=== PATIENT | female | born 1980 | race Caucasian/White ===

== ENCOUNTER 2022-05-28 19:16 | Inpatient (IN) ==
[2022-05-28] MEDS ORDERED: ALBUT/IPRATROP 3MG/0.5MG NEB 3 ML VIAL INH STA (19:40)
[2022-05-28] MEDS ORDERED: dexAMETHasone**PF** 10 MG/ML VIAL IV ONE (19:40)
--- NOTE | 2022-05-28 19:46 | Emergency Department Note ---
Impression & Plan COVID-19, Shortness of breath, Bilateral wheezing ED Provider Note INFORMANT: Patient ED PROVIDER(S): Sidney Ribeiro MD CHIEF COMPLAINT: Shortness of breath PLAN: Disposition: Admitted Condition: Good Outpatient prescription management: none Referral: None MEDICAL DECISION MAKING: The patient presented because of shortness of breath. She noted that she was told her oxygen saturation was 85% in the clinic. I did review the clinic record from [facility]. There was not a clear documentation of her at 85%. The patient underwent a work-up here. Her chest x-ray shows some congestion without lobar infiltrate. Her CBC showed a slight leukocytosis. The patient's troponin, D-dimer, BNP, chemistry panel, and LFTs were unremarkable. The patient was given a DuoNeb and Decadron. She was still short of breath and wheezing. The patient's O2 saturations were 89%. She was given supplemental oxygen. The patient had a bio fire test performed and was COVID-positive. The patient was given an additional DuoNeb. I discussed further management in the hospital and the patient was in agreement. Consultation was made with, Dr. Ruben Garcia, [facility] hospitalist service. Patient was evaluated in the ER for further management. Triage Nursing notes reviewed and agree them. Vital Signs: reviewed and remarkable for O2 saturation of 89%. Differential diagnosis: Viral syndrome, reactive airway disease, pneumonia, pneumothorax, COPD, CHF, infections, cardiac ischemia, pulmonary embolism, musculoskeletal, gastrointestinal, as well as other pathologies. Diagnostics interpreted by me: ECG: Twelve-lead ECG reveals a normal sinus rhythm at [address] elevation or depression. No PACs or PVCs. Cardiac Monitoring: Cardiac monitoring ordered by me: The patient was placed on continuous cardiac monitoring and observed. It revealed a normal sinus rhythm at 97 beats per minute without ectopy or evidence of dysrhythmia. Imaging studies: Chest x-ray as above. No pneumothorax. HPI: The patient is a 41year old female who presents to the Emergency Room with complaints of flulike symptoms and shortness of breath. This started over the last few days and is progressing. Patient notes a lot of left-sided sinus congestion, pressure and pain. Patient went to [facility] urgent care and was evaluated. She stated that her blood oxygen saturation was 85% and she was wheezing. She had orders placed for a BNP, D-dimer, chemistry panel, x-ray imaging, and pulmonary consultation. She was prescribed prednisone and Augmentin. She was discharged and referred to the emergency department. The patient also notes the following associated symptoms, nausea, diarrhea. Patient notes that her family was sick with flulike symptoms over the last few weeks. Current pain is rated as 8/10. Pt denies LOC, headache, fevers, chills, diaphoresis, visual changes, neck pain, chest pain, vomiting, abdominal pain, back pain, melena, hematochezia, urinary symptoms, numbness, weakness, lymphadenopathy, rash, or other complaints. ROS: See above HPI for pertinent positives & negatives. A total of 10 systems reviewed and were otherwise negative. PAST MEDICAL HISTORY:See Below , reactive airway disease PAST SURGICAL HISTORY:See Below, FAMILY HISTORY:See Below SOCIAL HISTORY:See Below, smoker HOME MEDICATIONS:See Below ALLERGIES:See Below VITALS:See Below PHYSICAL EXAMINATION: GENERAL: Awake, alert, nontoxic-appearing, in no distress HENT: Normocephalic, atraumatic. Oropharynx unremarkable. EYES: Normal conjunctiva. Sclera non-icteric. NECK: Inspection normal. Non-tender. Supple. No nuchal rigidity. FROM. No masses. RESPIRATORY: Scattered bilateral wheezes. No rales. Mildly increased respiratory effort. CARDIAC: Normal rate. Normal rhythm. No murmurs. No rubs. Extremities warm and well perfused. Pulses equal. No JVD. GI: Soft, non-distended. No tenderness to palpation. No rebound or guarding. No masses. RECTAL: Deferred. MUSCULOSKELETAL: Atraumatic. Chest examination reveals no tenderness. The back is symmetrical on inspection without obvious abnormality. There is no CVA tenderness to palpation. No joint edema. LOWER EXTREMITIES: Calves are equal size bilaterally and non-tender. No edema. No discoloration. NEURO: Normal sensorium. No sensory or motor deficits noted. SKIN: No rash or jaundice noted. Sidney Ribeiro MD Past Med/Surg History Surgical History History of cholecystectomy Family History Sister Ovarian cancer Denies family history of Breast cancer Lung cancer Colorectal cancer Social History Smoking Status: Never smoker Hx Alcohol Use: No Hx Substance Use: No Preferred Language: Armenian Communication Ability: Effective marital status: Single Current Living Situation: Family current occupational status: disabled How many Children do You have: 1 Feels Safe at Home: Yes Allergies Allergies Allergy/AdvReac Type Severity Reaction Status Date / Time lamotrigine [From Lamictal] Allergy hives Verified 11/30/21 15:05 Sulfa (Sulfonamide Allergy hives Verified 11/30/21 15:05 Antibiotics) pollen extracts AdvReac Verified 11/30/21 15:05 Home Meds Home Medications Medication Instructions Recorded Confirmed ascorbate calcium (vitamin C) 500 500 mg PO DAILY 11/11/21 11/30/21 mg tablet clonazepam PO 11/11/21 11/30/21 famotidine [Pepcid] PO 11/11/21 11/30/21 ferrous sulfate 325 mg (65 mg 325 mg PO DAILY 11/11/21 11/30/21 iron) tablet (Feosol) gabapentin PO 11/11/21 11/30/21 meloxicam PO 11/11/21 11/30/21 metformin PO 11/11/21 11/30/21 metoprolol succinate PO 11/11/21 11/30/21 omeprazole PO 11/11/21 11/30/21 sertraline [Zoloft] PO 11/11/21 11/30/21 trazodone PO 11/11/21 11/30/21 Previous Rx's Medication Instructions Recorded valacyclovir 500 mg tablet 1,000 mg PO BID 5 days #20 tabs 11/11/21 (Valtrex) Results & Data (ED) Vital Signs Vital Signs - 24 hr 05/28/22 19:23 05/28/22 19:58 05/28/22 21:17 Temperature 37 C Temperature Source Temporal Artery Scan Pulse Rate 99 H 82 Pulse Rate [Finger] 97 H Pulse Rhythm Regular Pulse Strength Normal Respiratory Rate 20 22 Respiratory Effort / Characteristics Non-Labored Spontaneous Respiratory Depth Normal Respiratory Pattern Regular Blood Pressure 123/83 Blood Pressure Mean 96 Blood Pressure Position Sitting Pulse Oximetry 93 96 89 L Oxygen Delivery Method Room Air Room Air Room Air Sepsis Recent Fever Within 48 Hours No Sepsis New/Unexplained Change in Mental Status N/A Sepsis Action Taken by Nursing No Action Required Laboratory Data Result diagrams: 05/28/22 19:54 05/28/22 19:54 Lab Results 05/28/22 05/28/22 05/28/22 Range/Units 19:54 19:54 19:54 WBC 11.49 H (4.8-10.8) K/ul RBC 4.50 (3.93-5.22) M/uL Hgb 13.9 (12.0-16.0) g/dl Hct 41.5 (34.1-44.9) % MCV 92.2 (80.0-100.0) fL MCH 30.9 (25.0-34.0) pg MCHC 33.5 (32.0-36.0) g/dL RDW Std Deviation 42.7 (36.4-46.3) fL RDW Coeff of Maycol 12.6 (11.5-14.5) % Plt Count 290 (130-400) K/uL MPV 9.9 (9.4-12.3) fL Immature Gran % (Auto) 0.3 % Neut % (Auto) 58.1 % Lymph % (Auto) 29.6 % [place] % (Auto) 6.6 % Eos % (Auto) 4.5 % Baso % (Auto) 0.9 % Neut # (Auto) 6.67 H (1.4-6.5) K/uL Lymph # (Auto) 3.40 (1.2-3.4) K/uL [place] # (Auto) 0.76 (0.24-0.82) K/uL Eos # (Auto) 0.52 H (0-0.50) K/uL Baso # (Auto) 0.10 (0-0.2) K/uL Immature Gran # (Auto) 0.04 H (0.00-0.02) K/uL D-Dimer 350 (0-500) ug/L FEU Sodium 138 (136-145) mmol/L Potassium 4.0 (3.5-5.1) mmol/L Chloride 104 (98-107) mmol/L Carbon Dioxide 28 (21-32) mmol/L Anion Gap 6 (3-11) BUN 13 (6-23) mg/dl Creatinine 0.81 (0.6-1.2) mg/dl Est Cr Clr Drug Dosing 103.3 ml/min Est GFR ( Amer) 104.6 ml/min Est GFR (Non-Af Amer) 90.2 ml/min BUN/Creatinine Ratio 16.0 (10-20) Glucose 90 (70-99(Fasting)) mg/dl Calcium 9.1 (8.5-10.1) mg/dl Magnesium 1.7 (1.7-2.4) mg/dl Total Bilirubin 0.4 (0.2-1.0) mg/dl AST 33 (13-39) U/L ALT 38 (7-52) U/L Alkaline Phosphatase 62 (34-104) U/L Troponin I High Sens 2.5 (0-14) pg/ml B-Natriuretic Peptide (0-100) pg/ml Total Protein 7.3 (6.0-8.3) gm/dl Albumin 4.1 (3.4-5.0) gm/dl Globulin 3.2 (2.5-4.0) gm/dl Albumin/Globulin Ratio 1.3 (0.9-2) Adenovirus (PCR) (NotDetected) B. pertussis DNA (PCR) (NotDetected) B.parapertussis DNA PCR (NotDetected) C. pneumoniae DNA (PCR) (NotDetected) Coronavirus OC43 (PCR) (NotDetected) Coronavirus HKU1 (PCR) (NotDetected) Coronavirus 229E (PCR) (NotDetected) SARS-CoV-2 (PCR) (NotDetected) Coronavirus NL63 (PCR) (NotDetected) Human Metapneumovir PCR (NotDetected) Influenza Type A (PCR) (NotDetected) Influenza Type B (PCR) (NotDetected) M. pneumoniae (PCR) (NotDetected) Parainfluenza 1 (PCR) (NotDetected) Parainfluenza 2 (PCR) (NotDetected) Parainfluenza 3 (PCR) (NotDetected) Parainfluenza 4 (PCR) (NotDetected) RSV (PCR) (NotDetected) Entero/Rhino (PCR) (NotDetected) 05/28/22 05/28/22 Range/Units 19:54 19:54 WBC (4.8-10.8) K/ul RBC (3.93-5.22) M/uL Hgb (12.0-16.0) g/dl Hct (34.1-44.9) % MCV (80.0-100.0) fL MCH (25.0-34.0) pg MCHC (32.0-36.0) g/dL RDW Std Deviation (36.4-46.3) fL RDW Coeff of Maycol (11.5-14.5) % Plt Count (130-400) K/uL MPV (9.4-12.3) fL Immature Gran % (Auto) % Neut % (Auto) % Lymph % (Auto) % [place] % (Auto) % Eos % (Auto) % Baso % (Auto) % Neut # (Auto) (1.4-6.5) K/uL Lymph # (Auto) (1.2-3.4) K/uL [place] # (Auto) (0.24-0.82) K/uL Eos # (Auto) (0-0.50) K/uL Baso # (Auto) (0-0.2) K/uL Immature Gran # (Auto) (0.00-0.02) K/uL D-Dimer (0-500) ug/L FEU Sodium (136-145) mmol/L Potassium (3.5-5.1) mmol/L Chloride (98-107) mmol/L Carbon Dioxide (21-32) mmol/L Anion Gap (3-11) BUN (6-23) mg/dl Creatinine (0.6-1.2) mg/dl Est Cr Clr Drug Dosing ml/min Est GFR ( Amer) ml/min Est GFR (Non-Af Amer) ml/min BUN/Creatinine Ratio (10-20) Glucose (70-99(Fasting)) mg/dl Calcium (8.5-10.1) mg/dl Magnesium (1.7-2.4) mg/dl Total Bilirubin (0.2-1.0) mg/dl AST (13-39) U/L ALT (7-52) U/L Alkaline Phosphatase (34-104) U/L Troponin I High Sens (0-14) pg/ml B-Natriuretic Peptide 9 (0-100) pg/ml Total Protein (6.0-8.3) gm/dl Albumin (3.4-5.0) gm/dl Globulin (2.5-4.0) gm/dl Albumin/Globulin Ratio (0.9-2) Adenovirus (PCR) Not Detected (NotDetected) B. pertussis DNA (PCR) Not Detected (NotDetected) B.parapertussis DNA PCR Not Detected (NotDetected) C. pneumoniae DNA (PCR) Not Detected (NotDetected) Coronavirus OC43 (PCR) Not Detected (NotDetected) Coronavirus HKU1 (PCR) Not Detected (NotDetected) Coronavirus 229E (PCR) Not Detected (NotDetected) SARS-CoV-2 (PCR) DETECTED A* (NotDetected) Coronavirus NL63 (PCR) Not Detected (NotDetected) Human Metapneumovir PCR Not Detected (NotDetected) Influenza Type A (PCR) Not Detected (NotDetected) Influenza Type B (PCR) Not Detected (NotDetected) M. pneumoniae (PCR) Not Detected (NotDetected) Parainfluenza 1 (PCR) Not Detected (NotDetected) Parainfluenza 2 (PCR) Not Detected (NotDetected) Parainfluenza 3 (PCR) Not Detected (NotDetected) Parainfluenza 4 (PCR) Not Detected (NotDetected) RSV (PCR) Not Detected (NotDetected) Entero/Rhino (PCR) Not Detected (NotDetected) Administered Medications Discontinued Medications Albuterol (Albut/Ipratrop 3mg/0.5mg Neb 3 Ml Vial) 3 ml INH NOW STA Stop: 05/28/22 19:41 Last Admin: 05/28/22 20:12 Dose: 3 ml Documented By: QGV Dexamethasone Sodium Phosphate (DexamethasonePf 10 Mg/Ml Vial) 10 mg IV NOW ONE Stop: 05/28/22 19:41 Last Admin: 05/28/22 20:12 Dose: 10 mg Documented By: QGV Discharge Plan Visit Data Chief Complaint: Sinus Congestion/Pressure Stated Complaint: SINUS PAIN ED Provider: Sidney Ribeiro Discharge Problem: COVID-19, Shortness of breath, Bilateral wheezing Forms Stand Alone Forms: [facility] Prescriptions Prescriptions: No Action metformin PO omeprazole PO ferrous sulfate [Feosol] 325 mg (65 mg iron) tablet 325 mg PO DAILY ascorbate calcium (vitamin C) 500 mg tablet 500 mg PO DAILY trazodone PO meloxicam PO clonazepam PO sertraline [Zoloft] PO gabapentin PO famotidine [Pepcid] PO metoprolol succinate PO valacyclovir [Valtrex] 500 mg tablet 1,000 mg PO BID 5 Days Qty: 20 1RF Referrals Referrals: Uvaldo Martinez MD [Primary Care Provider] -
[2022-05-28 20:08] LABS: Basophils % (auto) 0.9 %; Eosinophils # (auto) 0.52 K/uL (0-0.50); Eosinophils % (auto) 4.5 %; Hematocrit (blood only) 41.5 % (34.1-44.9); Hemoglobin 13.9 g/dl (12.0-16.0); Immature Granulocytes # (auto) 0.04 K/uL (0.00-0.02); Immature Granulocytes % (auto) 0.3 %; Lymphocytes % (auto) 29.6 %; Mean Corpuscular Hemoglobin 30.9 pg (25.0-34.0); Mean Corpuscular Hgb Conc 33.5 g/dL (32.0-36.0); Mean Corpuscular Volume 92.2 fL (80.0-100.0); Mean Platelet Volume 9.9 fL (9.4-12.3); Monocytes # (auto) 0.76 K/uL (0.24-0.82); Monocytes % (auto) 6.6 %; Neutrophils # (auto) 6.67 K/uL (1.4-6.5); Neutrophils % (auto) 58.1 %; Platelet Count 290 K/uL (130-400); RDW Coefficient of Variation 12.6 % (11.5-14.5); RDW Standard Deviation 42.7 fL (36.4-46.3); White Blood Count 11.49 K/ul (4.8-10.8)
[2022-05-28 20:28] LABS: D Dimer 350 ug/L FEU (0-500)
[2022-05-28 20:33] LABS: Albumin Globulin Ratio 1.3 (0.9-2); Albumin Level 4.1 gm/dl (3.4-5.0); Bilirubin,Total 0.4 mg/dl (0.2-1.0); Calcium 9.1 mg/dl (8.5-10.1); Creatinine Clr Calc Pharmacy 103.3 ml/min; Est GFR (African American) 104.6 ml/min; Est GFR (Non-African American) 90.2 ml/min; Globulin 3.2 gm/dl (2.5-4.0); Magnesium 1.7 mg/dl (1.7-2.4); Total Protein 7.3 gm/dl (6.0-8.3)
[2022-05-28 20:37] LABS: Troponin I High Sensitivity 2.5 pg/ml (0-14)
[2022-05-28 21:00] LABS: Adenovirus PCR Not Detected (NotDetected); Bordetella parapertussis PCR Not Detected (NotDetected); Bordetella pertussis PCR Not Detected (NotDetected); Chlamydia pneumoniae PCR Not Detected (NotDetected); Coronavirus 229E PCR Not Detected (NotDetected); Coronavirus HKU1 PCR Not Detected (NotDetected); Coronavirus NL63 PCR Not Detected (NotDetected); Coronavirus OC43PCR Not Detected (NotDetected); Human Metapneumovirus PCR Not Detected (NotDetected); Influenza A PCR Not Detected (NotDetected); Influenza B PCR Not Detected (NotDetected); Mycoplasma pneumoniae PCR Not Detected (NotDetected); Parainfluenza Virus 1 PCR Not Detected (NotDetected); Parainfluenza Virus 2 PCR Not Detected (NotDetected); Parainfluenza Virus 3 PCR Not Detected (NotDetected); Parainfluenza Virus 4 PCR Not Detected (NotDetected); Respiratory Syncytial VirusPCR Not Detected (NotDetected); Rhinovirus/Enterovirus PCR Not Detected (NotDetected)
[2022-05-28 21:04] LABS: Coronavirus CoV-2 (COVID19)PCR DETECTED (NotDetected)
[2022-05-28] MEDS ORDERED: ALBUT/IPRATROP 3MG/0.5MG NEB 3 ML VIAL NEB STA (21:21)
[2022-05-28] MEDS ORDERED: SODIUM CHLORIDE 0.9% 1000ML 1,000 ML IV ONE (21:39)
[2022-05-28] MEDS ORDERED: traMADol HCL 50 MG TABLET PO STA ×2 (22:12→23:42)
--- NOTE | 2022-05-28 22:13 | History & Physical Report ---
Date of Service May 28, 2022 Assessment & Plan (1) Acute hypoxemic respiratory failure: Plan: Possible asthma exacerbation From protracted COVID-19 illness and sinusitis with superimposed bacterial infection Secondary to severe COVID-19 pneumonia No overt sepsis for now HCV status post treatment DM2 diet-controlled, well-controlled as of recent hemoglobin A1c of 6.8 last February 2022 anxiety/PTSD/mood disorder, at baseline ongoing tobacco abuse Medical telemetry Supplemental O2 Decadron course (Patient beyond treatment window for Remdesivir given symptoms more than 3 weeks duration). MDI RTC Augmentin for sinusitis with superimposed bacterial infection CT paranasal sinuses Re: Protracted sinus congestion/headache symptoms Pulmonary consult if without improvement. Basal bolus insulin, ISS BG goal 1 10-1 40, carb count coverage, update hemoglobin A1c Nicotine patch DVT prophylaxis per Lovenox subcu Full code Text document was generated using [employer] voice recognition software. It may contain grammatical or spelling errors. Kindly contact undersigned for clarification of any documentation item in question. History of Present Illness Chief Complaint: Shortness of breath, possible COVID, sinus congestion Primary Care Provider: Uvaldo Martinez MD History obtained from patient, family, and records. Medical history significant for bronchial asthma, HCV status post treatment, DM2 diet-controlled, anxiety/PTSD/mood disorder, chronic back pain, ongoing tobacco abuse. 3 weeks history of flulike symptoms associated with loss of taste/smell followed by sinus congestion with note of yellow drainage. Worsening cough productive of dry sputum with pleuritic chest pain and shortness of breath. Diarrhea symptoms without abdominal pain complaints. Possible COVID-19 contacts at home. Patient has not received COVID-19 vaccination. Patient thinks her asthma is acting up. Patient seen at urgent care center today. Prednisone and Augmentin course prescribed for asthma exacerbation and sinusitis. Fluticasone salmeterol inhaler prescribed to replace patient's Flovent. Outpatient pulmonary and ENT consultations recommended. Patient sent to [facility] for testing. O2 sats noted to be 80s at the ER. Decadron and neb treatment administered at the ER. 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 Allergies Allergy/AdvReac Type Severity Reaction Status Date / Time lamotrigine [From Lamictal] Allergy hives Verified 05/28/22 22:25 Sulfa (Sulfonamide Allergy hives Verified 05/28/22 22:25 Antibiotics) pollen extracts AdvReac Unknown Verified 05/28/22 22:25 Home Medications Medication Instructions Recorded Confirmed Type Ferrous Sulfate Dried Pill 1 tab PO DAILY 05/28/22 05/28/22 History Vitamin C Gummy 240 mg PO DAILY 05/28/22 05/28/22 History acetaminophen 325 mg tablet 650 mg PO Q6 PRN Pain 05/28/22 05/28/22 History (Tylenol) albuterol sulfate 90 mcg/actuation 2 puff inhalation Q4 PRN .cough, 05/28/22 05/28/22 History aerosol inhaler sob, wheezing amoxicillin 875 mg-potassium 1 tab PO BID 05/28/22 05/28/22 History clavulanate 125 mg tablet azelastine 137 mcg (0.1 %) nasal 1 spray intranasal DIRECTED 05/28/22 History spray aerosol budesonide 0.5 mg/2 mL suspension 0.5 mg irrigation DIRECTED 05/28/22 05/28/22 History for nebulization cetirizine 10 mg tablet (Zyrtec) 10 mg PO DAILY 05/28/22 05/28/22 History clonazepam 0.5 mg tablet 0.5 mg PO DAILY PRN Anxiety 05/28/22 05/28/22 History clonazepam 0.5 mg tablet 1 mg PO HS 05/28/22 05/28/22 History colestipol 1 gram tablet 1 g PO AMHS 05/28/22 05/28/22 History diclofenac sodium 50 mg 50 mg PO BID PRN Pain 05/28/22 05/28/22 History tablet,delayed release dulaglutide 0.75 mg/0.5 mL 0.75 mg subcut WE 05/28/22 05/28/22 History subcutaneous pen injector (Trulicity) famotidine 20 mg tablet 20 mg PO BID PRN Acid Reflux 05/28/22 05/28/22 History fluticasone 250 mcg-salmeterol 50 1 inh inhalation BID 05/28/22 05/28/22 History mcg/dose blistr powdr for inhalation (Advair Diskus) fluticasone propionate 50 2 spray intranasal BID 05/28/22 05/28/22 History mcg/actuation nasal spray,suspension (Flonase Allergy Relief) gabapentin 400 mg capsule 400 mg PO TID 05/28/22 05/28/22 History ketoconazole 2 % shampoo 1 applic topical 2XWK 05/28/22 05/28/22 History methocarbamol 500 mg tablet 750 mg PO HS PRN .. 05/28/22 05/28/22 History metoprolol succinate 50 mg 75 mg PO QAM 05/28/22 05/28/22 History tablet,extended release 24 hr naproxen sodium 220 mg tablet 220 mg PO BIDM PRN Pain 05/28/22 05/28/22 History nicotine 14 mg/24 hr daily 1 patch topical DIRECTED 05/28/22 05/28/22 History transdermal patch omeprazole 40 mg capsule,delayed 40 mg PO BID 05/28/22 05/28/22 History release ondansetron 4 mg disintegrating 4 mg translingual Q8H PRN Nausea 05/28/22 05/28/22 History tablet prednisone 10 mg tablet 10 mg PO .TAPER UD 05/28/22 05/28/22 History rizatriptan 10 mg disintegrating 0 mg PO .COMPLEX 05/28/22 05/28/22 History tablet sertraline 100 mg tablet 150 mg PO QAM 05/28/22 05/28/22 History trazodone 150 mg tablet 150 mg PO HS 05/28/22 05/28/22 History Past Med/Surg History Surgical History History of cholecystectomy Family History Sister Ovarian cancer Denies family history of Breast cancer Lung cancer Colorectal cancer Social History Smoking Status: Current every day smoker Cigarettes Per Day: 4; Second Hand Exposure: Yes; Do You Dip or Chew Tobacco: No; Tobacco Cessation Education Requested by Patient: No Hx Alcohol Use: No Hx Substance Use: No Preferred Language: Greenlandic Communication Ability: Effective Biometry Teacher Required: No Beliefs That Will Affect Care: None marital status: Single Current Living Situation: Parent and Family Current Living Situation Comment: Mom and Son current occupational status: disabled How many Children do You have: 1 Other Information That Helps Us Care for You: No Feels Safe at Home: Yes Safety Concerns: Feels Safe At This Time Assistive Devices: Cane and Scooter/Electric Scooter Review of Systems Review of Systems: As per HPI, all other systems reviewed and negative Physical Exam Physical Exam: GENERAL: Slightly uncomfortable, morbidly obese, looks older than stated age, no respiratory distress SKIN: Normal color, warm HEENT: Bespectacled, [place] palpebral conjunctivae, no ptosis, dry buccal mucosa NECK : Supple, short neck, no tenderness CHEST : Decreased breath sounds, no tenderness HEART : Tachycardic, no obvious murmurs ABDOMEN: Some distention, nontender EXTREMITIES : Minimal LE swelling, no LE tenderness, no other conspicuous deformities noted NEUROLOGIC : Coherent, no facial asymmetry, no other gross focality Results & Data Results & Data ([facility]) Vital Signs (Past 12 Hours) Vital Signs Temp Pulse Pulse Resp BP Pulse Ox O2 Del Method 05/28/22 21:17 97 H 22 89 L Room Air 05/28/22 19:58 82 20 96 Room Air 05/28/22 19:23 37 C 99 H 20 123/83 93 Room Air Laboratory Results Laboratory Results WBC 11.49 K/ul (4.8-10.8) H 05/28/22 19:54 RBC 4.50 M/uL (3.93-5.22) 05/28/22 19:54 Hgb 13.9 g/dl (12.0-16.0) 05/28/22 19:54 Hct 41.5 % (34.1-44.9) 05/28/22 19:54 MCV 92.2 fL (80.0-100.0) 05/28/22 19:54 MCH 30.9 pg (25.0-34.0) 05/28/22 19:54 MCHC 33.5 g/dL (32.0-36.0) 05/28/22 19:54 RDW Std Deviation 42.7 fL (36.4-46.3) 05/28/22 19:54 RDW Coeff of Maycol 12.6 % (11.5-14.5) 05/28/22 19:54 Plt Count 290 K/uL (130-400) 05/28/22 19:54 MPV 9.9 fL (9.4-12.3) 05/28/22 19:54 Immature Gran % (Auto) 0.3 % 05/28/22 19:54 Neut % (Auto) 58.1 % 05/28/22 19:54 Lymph % (Auto) 29.6 % 05/28/22 19:54 [place] % (Auto) 6.6 % 05/28/22 19:54 Eos % (Auto) 4.5 % 05/28/22 19:54 Baso % (Auto) 0.9 % 05/28/22 19:54 Neut # (Auto) 6.67 K/uL (1.4-6.5) H 05/28/22 19:54 Lymph # (Auto) 3.40 K/uL (1.2-3.4) 05/28/22 19:54 [place] # (Auto) 0.76 K/uL (0.24-0.82) 05/28/22 19:54 Eos # (Auto) 0.52 K/uL (0-0.50) H 05/28/22 19:54 Baso # (Auto) 0.10 K/uL (0-0.2) 05/28/22 19:54 Immature Gran # (Auto) 0.04 K/uL (0.00-0.02) H 05/28/22 19:54 D-Dimer 350 ug/L FEU (0-500) 05/28/22 19:54 Sodium 138 mmol/L (136-145) 05/28/22 19:54 Potassium 4.0 mmol/L (3.5-5.1) 05/28/22 19:54 Chloride 104 mmol/L (98-107) 05/28/22 19:54 Carbon Dioxide 28 mmol/L (21-32) 05/28/22 19:54 Anion Gap 6 (3-11) 05/28/22 19:54 BUN 13 mg/dl (6-23) 05/28/22 19:54 Creatinine 0.81 mg/dl (0.6-1.2) 05/28/22 19:54 Est Cr Clr Drug Dosing 103.3 ml/min 05/28/22 19:54 Est GFR ( Amer) 104.6 ml/min 05/28/22 19:54 Est GFR (Non-Af Amer) 90.2 ml/min 05/28/22 19:54 BUN/Creatinine Ratio 16.0 (10-20) 05/28/22 19:54 Glucose 90 mg/dl (70-99(Fasting)) 05/28/22 19:54 Calcium 9.1 mg/dl (8.5-10.1) 05/28/22 19:54 Magnesium 1.7 mg/dl (1.7-2.4) 05/28/22 19:54 Total Bilirubin 0.4 mg/dl (0.2-1.0) 05/28/22 19:54 AST 33 U/L (13-39) 05/28/22 19:54 ALT 38 U/L (7-52) 05/28/22 19:54 Alkaline Phosphatase 62 U/L (34-104) 05/28/22 19:54 Troponin I High Sens 2.5 pg/ml (0-14) 05/28/22 19:54 B-Natriuretic Peptide 9 pg/ml (0-100) 05/28/22 19:54 Total Protein 7.3 gm/dl (6.0-8.3) 05/28/22 19:54 Albumin 4.1 gm/dl (3.4-5.0) 05/28/22 19:54 Globulin 3.2 gm/dl (2.5-4.0) 05/28/22 19:54 Albumin/Globulin Ratio 1.3 (0.9-2) 05/28/22 19:54 Adenovirus (PCR) Not Detected (NotDetected) 05/28/22 19:54 B. pertussis DNA (PCR) Not Detected (NotDetected) 05/28/22 19:54 B.parapertussis DNA PCR Not Detected (NotDetected) 05/28/22 19:54 C. pneumoniae DNA (PCR) Not Detected (NotDetected) 05/28/22 19:54 Coronavirus OC43 (PCR) Not Detected (NotDetected) 05/28/22 19:54 Coronavirus HKU1 (PCR) Not Detected (NotDetected) 05/28/22 19:54 Coronavirus 229E (PCR) Not Detected (NotDetected) 05/28/22 19:54 SARS-CoV-2 (PCR) DETECTED (NotDetected) A* 05/28/22 19:54 Coronavirus NL63 (PCR) Not Detected (NotDetected) 05/28/22 19:54 Human Metapneumovir PCR Not Detected (NotDetected) 05/28/22 19:54 Influenza Type A (PCR) Not Detected (NotDetected) 05/28/22 19:54 Influenza Type B (PCR) Not Detected (NotDetected) 05/28/22 19:54 M. pneumoniae (PCR) Not Detected (NotDetected) 05/28/22 19:54 Parainfluenza 1 (PCR) Not Detected (NotDetected) 05/28/22 19:54 Parainfluenza 2 (PCR) Not Detected (NotDetected) 05/28/22 19:54 Parainfluenza 3 (PCR) Not Detected (NotDetected) 05/28/22 19:54 Parainfluenza 4 (PCR) Not Detected (NotDetected) 05/28/22 19:54 RSV (PCR) Not Detected (NotDetected) 05/28/22 19:54 Entero/Rhino (PCR) Not Detected (NotDetected) 05/28/22 19:54 Diagnostic Findings Chest x-ray as per my interpretation no congestion EKG as per my interpretation : Rate 85, NSR, normal axis, no ischemia
[2022-05-28] MEDS: NICOTINE 7 MG/24 HR TDSY TD SCH (22:55)
[2022-05-28] MEDS: MAGNESIUM SULFATE / D5W 1 GM/100 ML BAG IV SCH (22:55)
[2022-05-28 23:00] LABS: Appearance Urine Clear (Clear); Bilirubin Urine Negative (Negative); Blood Urine Negative (Negative); Color Urine Yellow; Glucose Urine UA Negative (Negative); Ketones Urine Trace (Negative); Leukocyte Esterase Urine Negative (Negative); Nitrite Urine Negative (Negative); Protein Urine Negative (Negative); Specific Gravity Urine 1.019 (1.000-1.030); Urobilinogen Urine Negative (Negative); pH Urine 5.5 (4.5-7.5)
--- NOTE | 2022-05-28 23:00 | XRay Report ---
SINGLE VIEW CHEST CLINICAL HISTORY: Dyspnea. FINDINGS: An AP, portable, upright chest radiograph is obtained. No prior studies are available for c omparison at the time of dictation. The examination is degraded by portable technique and large body habitus. The cardiomediastinal silhouette is normal for projection. There is mild elevation of the ri ght hemidiaphragm. The lungs and pleural spaces are clear. No pneumothorax is seen. The bony thorax i s grossly intact. IMPRESSION: No active disease in the chest. ACT 112: Negative or not required by law. Electronically signed by: Genaro Quiros M.D. 05/28/2022 10:59 PM
[2022-05-28] MEDS ORDERED: OPTIRAY 350 100ml IV ONE (23:43)
[2022-05-28] MEDS ORDERED: oxyCODONE HCL IR 5 MG TAB (IMMEDIATE RELEASE) PO STA (23:56)
--- NOTE | 2022-05-28 23:59 | CT Scan Report ---
CT SCAN OF THE PARANASAL SINUSES WITH IV CONTRAST CLINICAL HISTORY: Sinus infection. COMPARISON STUDY: No priors. TECHNIQUE: High-resolution CT scan of the paranasal sinuses is performed following the IV administra tion of 87 cc of Optiray 350. Images are reviewed in the axial, sagittal, and coronal planes. IV cont rast was administered without complication. A dose lowering technique was utilized adhering to the p rinciples of ALA. CT DOSE: 626.76 mGy.cm FINDINGS: Maxillary antra: Clear bilaterally. Anterior ethmoid sinuses: Clear. Posterior ethmoid sinuses: Trace mucosal thickening is seen in the right. Clinical on the left. Sphenoid sinuses: Trace mucosal thickening is seen on the left. Clear the right. Frontal sinuses: Clear. Ostiomeatal complexes: Patent bilaterally. Frontoethmoidal and sphenoethmoidal recesses: Patent bilaterally. Carotid arteries: The carotid arteries are covered and without septal attachments. Ethmoid roofs: The ethmoid roofs are symmetric. Nasal turbinates: Normal in appearance. Nasal septum: There is mild leftward deviation of the bony nasal septum. Optic nerves: Covered. Orbits: The bony orbits are intact. Orbital contents are normal in appearance. Calvarium: The imaged calvarium is normal in appearance Mastoid air cells: Well pneumatized. Brain parenchyma: Partially visualized brain parenchyma is within normal limits. IMPRESSION: No significant paranasal sinus disease is identified. ACT 112: Negative or not required by law. Electronically signed by: Genaro Quiros M.D. 05/28/2022 11:57 PM
[2022-05-29] MEDS ORDERED: GLUCOSE 10 TAB/TUBE PO PRN (00:18)
[2022-05-29] MEDS ORDERED: ACETAMINOPHEN 325 MG TAB PO PRN (00:18)
[2022-05-29] MEDS ORDERED: PROMETHAZINE HCL 12.5 MG in SODIUM CHLORIDE 0.9% 50 ML IV PRN (00:18)
[2022-05-29] MEDS ORDERED: DEXTROSE 50% 50 ML SYRINGE IV PRN (00:18)
[2022-05-29] MEDS ORDERED: CARBOHYDRATES FOR HYPOGLYCEMIA PO PRN (00:18)
[2022-05-29] MEDS ORDERED: NAPROXEN 250 MG TAB PO PRN (00:18)
[2022-05-29] MEDS ORDERED: GLUCAGON FOR INJ 1 MG VIAL SQ PRN (00:18)
[2022-05-29] MEDS ORDERED: GLUCOSE 40% GEL 15 GM TUBE PO PRN (00:18)
[2022-05-29] MEDS: MAGNESIUM SULFATE / D5W 1 GM/100 ML BAG IV SCH (01:03)
[2022-05-29] MEDS: INSULIN ASPART PER UNIT SC SCH ×5 (01:05→21:04)
[2022-05-29] MEDS: traZODone HCL 50 MG TAB PO SCH ×2 (01:24→21:11)
[2022-05-29] MEDS: GABAPENTIN 400 MG CAP PO SCH ×4 (01:24→21:09)
[2022-05-29] MEDS: clonazePAM 0.5 MG TAB PO PRN ×2 (01:26→15:58)
[2022-05-29] MEDS: oxyCODONE HCL IR 5 MG TAB (IMMEDIATE RELEASE) PO PRN ×3 (01:26→23:22)
[2022-05-29] MEDS: AZELASTINE HCL 0.1% NASAL 200 SPRAYS/27,400 MCG BTL SCH ×3 (01:28→21:11)
[2022-05-29] MEDS: clonazePAM 1 MG TAB PO SCH ×2 (01:32→21:09)
[2022-05-29] MEDS ORDERED: LANTUS PER UNIT CHARGE SQ SCH ×2 (02:35→21:00)
[2022-05-29] MEDS ORDERED: FLUARIX QUADRIVALENT 0.5 ML SYR IM ONE (04:32)
[2022-05-29] MEDS ORDERED: SODIUM CHLORIDE 0.65% NA SOLN 45 ML (OCEAN) PRN (05:47)
[2022-05-29 06:08] LABS: Basophils # (auto) 0.04 K/uL (0-0.2); Basophils % (auto) 0.4 %; Eosinophils # (auto) 0.01 K/uL (0-0.50); Eosinophils % (auto) 0.1 %; Hematocrit (blood only) 42.3 % (34.1-44.9); Hemoglobin 14.1 g/dl (12.0-16.0); Immature Granulocytes # (auto) 0.08 K/uL (0.00-0.02); Immature Granulocytes % (auto) 0.8 %; Lymphocytes # (auto) 1.04 K/uL (1.2-3.4); Lymphocytes % (auto) 10.9 %; Mean Corpuscular Hemoglobin 30.5 pg (25.0-34.0); Mean Corpuscular Hgb Conc 33.3 g/dL (32.0-36.0); Mean Corpuscular Volume 91.6 fL (80.0-100.0); Mean Platelet Volume 10.2 fL (9.4-12.3); Neutrophils % (auto) 86.8 %; Platelet Count 235 K/uL (130-400); RDW Coefficient of Variation 12.5 % (11.5-14.5); RDW Standard Deviation 41.9 fL (36.4-46.3); Red Blood Count 4.62 M/uL (3.93-5.22); White Blood Count 9.57 K/ul (4.8-10.8)
[2022-05-29 06:23] LABS: Calcium 9.3 mg/dl (8.5-10.1); Est GFR (African American) 114.8 ml/min; Potassium 4.6 mmol/L (3.5-5.1)
[2022-05-29] MEDS ORDERED: LEVALBUTEROL TARTRATE 15 GM HFA.AER.AD INH SCH (07:00)
[2022-05-29] MEDS ORDERED: PHARMACY GLYCEMIC MGMT CONSULT PRN (07:49)
[2022-05-29] MEDS ORDERED: XOPENEX/ATROVENT 1.25mg/0.5MG NEB COMBO NEB SCH (07:50)
--- NOTE | 2022-05-29 08:03 | Pulmonary Consultation ---
Date of Consultation May 29, 2022 Assessment & Plan (1) Acute hypoxemic respiratory failure: (2) Shortness of breath: (3) Morbid obesity: (4) Acute asthma exacerbation: (5) Current smoker: Plan CT chest 05/29/2022 personally reviewed: Minimal tree-in-bud opacities appreciated in the right upper lobe anteriorly Left lower lobe nodularity versus mucous plugging Insignificant mediastinal lymphadenopathy --Acute hypoxic respiratory failure CT chest does not show any significant infiltrate VQ mismatch form morbid obesity might be playing a role in patient's hypoxia Asthma exacerbation COVID-19 PCR positive 05/28/2022 Respiratory bio fire negative for everything else BNP 9 Procalcitonin 0.08, CRP 0.89 Continue with O2 supplementation to keep oxygen saturation between 90-92%. Continue with incentive spirometry Continue with flutter valve. Recommend patient to be kept euvolemic to negative balance -- Asthma On Advair 250-50 at home Patient just got a kitten as well which I think she is most likely allergic to Recommend outpatient RAST panel as well as IgE Add Spiriva to the regimen on discharge -- Allergic rhinitis or postnasal drip On azelastine nasal spray --Morbid obesity with probable MAXIMUS/OHS Would recommend BiPAP nightly and as needed shortness of breath Outpatient polysomnography -- Current smoker Importance of quitting explained to the patient in depth Plan: CT chest does not show any significant infiltrate relating to COVID-19 diagnosis. I do not think Covid-19 pneumonia is playing a role in her hypoxia She does have some mucous plugging. Continue with Mucinex and flutter valve Incentive spirometry. Patient has very poor effort. I personally showed her how to use the incentive spirometry. Add montelukast Patient does not have any signs of sinusitis on the CT of the sinuses. Could continue with Augmentin for 7 days or change to doxycycline for 5 days Follow-up sputum culture Please note the above document was generated using voice recognition software. It may contain grammatical, syntax or spelling errors.Any formal questions or c oncerns about the content, text or information contained within the body of this dictation should be directly addressed to the provider for clarification. History of Present Illness Attending Physician: Toney Erazo MD History of Present Illness 41-year-old female presented to the hospital with complaints of shortness of breath along with nasal congestion Past medical history: Bronchial asthma, hepatitis C status posttreatment, diabetes type 2, anxiety/depression, chronic back pain Patient is not vaccinated against COVID-19 Patient did have diarrhea at home without hematochezia. Patient saturation in the ED was in the mid 80s. At the time of examination patient was saturating 93-94% on room air, she was not in any acute distress Denies any chest pain, no headache, no nausea, no vomiting Does complain of mild chest congestion. Able to bring up phlegm without any hemoptysis. She has been having multiple bouts of diarrhea approximately since 2 weeks prior to coming to the hospital. Since coming to the hospital no bowel movement No dysuria, no headache, no blurry vision Denies any fever or chills right now For her asthma she uses Advair on a regular basis. She still has to use albuterol inhaler up to 3-4 times on a daily basis. Social history: Active smoker, smokes 5-10 cigarettes on a daily basis. 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 Just got a kitten which most likely she is allergic to Allergies Allergy/AdvReac Type Severity Reaction Status Date / Time lamotrigine [From Lamictal] Allergy hives Verified 05/28/22 22:25 Sulfa (Sulfonamide Allergy hives Verified 05/28/22 22:25 Antibiotics) pollen extracts AdvReac Unknown Verified 05/28/22 22:25 Home Medications Medication Instructions Recorded Confirmed Type Ferrous Sulfate Dried Pill 1 tab PO DAILY 05/28/22 05/28/22 History Vitamin C Gummy 240 mg PO DAILY 05/28/22 05/28/22 History acetaminophen 325 mg tablet 650 mg PO Q6 PRN Pain 05/28/22 05/28/22 History (Tylenol) albuterol sulfate 90 mcg/actuation 2 puff inhalation Q4 PRN .cough, 05/28/22 05/28/22 History aerosol inhaler sob, wheezing amoxicillin 875 mg-potassium 1 tab PO BID 05/28/22 05/28/22 History clavulanate 125 mg tablet azelastine 137 mcg (0.1 %) nasal 1 spray intranasal DIRECTED 05/28/22 05/28/22 History spray aerosol budesonide 0.5 mg/2 mL suspension 0.5 mg irrigation DIRECTED 05/28/22 05/28/22 History for nebulization cetirizine 10 mg tablet (Zyrtec) 10 mg PO DAILY 05/28/22 05/28/22 History clonazepam 0.5 mg tablet 0.5 mg PO DAILY PRN Anxiety 05/28/22 05/28/22 History clonazepam 0.5 mg tablet 1 mg PO HS 05/28/22 05/28/22 History colestipol 1 gram tablet 1 g PO AMHS 05/28/22 05/28/22 History diclofenac sodium 50 mg 50 mg PO BID PRN Pain 05/28/22 05/28/22 History tablet,delayed release dulaglutide 0.75 mg/0.5 mL 0.75 mg subcut WE 05/28/22 05/28/22 [facility] famotidine 20 mg tablet 20 mg PO BID PRN Acid Reflux 05/28/22 05/28/22 History fluticasone 250 mcg-salmeterol 50 1 inh inhalation BID 05/28/22 05/28/22 History mcg/dose blistr powdr for inhalation (Advair Diskus) fluticasone propionate 50 2 spray intranasal BID 05/28/22 05/28/22 History mcg/actuation nasal spray,suspension (Flonase Allergy Relief) gabapentin 400 mg capsule 400 mg PO TID 05/28/22 05/28/22 History ketoconazole 2 % shampoo 1 applic topical 2XWK 05/28/22 05/28/22 History methocarbamol 500 mg tablet 750 mg PO HS PRN .. 05/28/22 05/28/22 History metoprolol succinate 50 mg 75 mg PO QAM 05/28/22 05/28/22 History tablet,extended release 24 hr naproxen sodium 220 mg tablet 220 mg PO BIDM PRN Pain 05/28/22 05/28/22 History nicotine 14 mg/24 hr daily 1 patch topical DIRECTED 05/28/22 05/28/22 History transdermal patch omeprazole 40 mg capsule,delayed 40 mg PO BID 05/28/22 05/28/22 History release ondansetron 4 mg disintegrating 4 mg translingual Q8H PRN Nausea 05/28/22 05/28/22 History tablet prednisone 10 mg tablet 10 mg PO .TAPER UD 05/28/22 05/28/22 History rizatriptan 10 mg disintegrating 0 mg PO .COMPLEX 05/28/22 05/28/22 History tablet sertraline 100 mg tablet 150 mg PO QAM 05/28/22 05/28/22 History trazodone 150 mg tablet 150 mg PO HS 05/28/22 05/28/22 History Patient History Surgical History History of cholecystectomy Family History Sister Ovarian cancer Denies family history of Breast cancer Lung cancer Colorectal cancer Social History Smoking Status: Current every day smoker Cigarettes Per Day: 4; Second Hand Exposure: Yes; Do You Dip or Chew Tobacco: No; Tobacco Cessation Education Requested by Patient: No Hx Alcohol Use: No Hx Substance Use: No Preferred Language: Yemeni Communication Ability: Effective Supervisor Grips Required: No Beliefs That Will Affect Care: None marital status: Single Current Living Situation: Parent and Family Current Living Situation Comment: Mom and Son current occupational status: disabled How many Children do You have: 1 Other Information That Helps Us Care for You: No Feels Safe at Home: Yes Safety Concerns: Feels Safe At This Time Assistive Devices: Cane and Scooter/Electric Scooter Review of Systems Review of Systems: All systems reviewed & are unremarkable except as noted in HPI & below Physical Exam Physical Exam: Constitutional: No acute distress HEENT: EOMI, PERRLA Respiratory system: Decreased air entry bilaterally, no wheeze, rhonchi, mild crackles bilateral lower lobes CVS: S1-S2 positive, no murmurs or gallops Abdomen: Soft, nontender, nondistended, positive bowel sounds x4, obese Extremities: +2 pulses bilaterally radialis/ dorsalis pedis, no cyanosis, no edema Neuro: Awake alert oriented x3 Psych: Normal mood and affect G/U: No Perry Skin: no rashes, warm and dry Lymphatic: no cervical or axillary lymphadenopathy Results & Data Results & Data ([facility]) Vital Signs (Past 12 Hours) Vital Signs Temp Pulse Pulse Resp BP Pulse Ox O2 Del Method 05/29/22 07:36 109 H 16 93 Room Air 05/29/22 01:00 37.3 C 104 H 18 134/85 94 Room Air 05/29/22 03:46 37.0 C 102 H 18 116/70 94 Room Air 05/29/22 01:57 95 H 05/29/22 01:00 37.3 C 104 H 18 133/85 94 Room Air 05/29/22 00:32 Room Air 05/29/22 00:07 101 H 20 92 Room Air 05/28/22 22:00 105 H 20 102/81 94 Room Air 05/28/22 21:17 97 H 22 89 L Room Air 05/28/22 19:58 82 20 96 Room Air Laboratory Results 05/29/22 05:48 05/29/22 05:48 PG Care Time/CCT Total # of Minutes Spent Total Time Spent with Patient: Total time spent is greater than 50% in coordination of care (as documented) at patient's floor/unit and/or counseling patient: [place] [address] Initial Inpt Care Lvl 3 Patient Type New Diagnoses Acute hypoxemic respiratory failure J96.01 Shortness of breath R06.02 Morbid obesity E66.01 Acute asthma exacerbation J45.901 Current smoker F17.200
[2022-05-29] MEDS: IPRATROPIUM BROMIDE NEB SOLN 0.02% 2.5 ML VIAL INH SCH ×3 (08:22→19:17)
[2022-05-29] MEDS: LEVALBUTEROL 1.25MG/0.5ML NEB INH SCH ×3 (08:22→19:17)
[2022-05-29] MEDS: AMOXICILLIN/CLAVULANATE 875 MG TAB PO SCH ×2 (08:30→16:43)
[2022-05-29] MEDS: ENOXAPARIN INJ 40 MG/0.4 ML SYR SQ SCH (08:32)
[2022-05-29] MEDS: FLUTICASONE PROPIONATE NA SPR 16 GM BTL SCH ×2 (08:32→21:11)
[2022-05-29] MEDS: dexAMETHasone 6 MG in SYRINGE 0 ML IV SCH (08:32)
[2022-05-29] MEDS: PANTOprazole 40 MG TAB PO SCH ×2 (08:33→21:09)
[2022-05-29] MEDS: SERTRALINE HCL 50 MG TABLET PO SCH (08:33)
[2022-05-29] MEDS: FAMOTIDINE 20 MG TAB PO PRN (08:34)
[2022-05-29] MEDS: CETIRIZINE HCL 10 MG TABLET PO SCH (08:34)
[2022-05-29] MEDS: METOPROLOL SUCC 25MG EXT REL TAB PO SCH (08:34)
[2022-05-29] MEDS: FERROUS SULFATE 325 MG TAB PO SCH (08:34)
[2022-05-29] MEDS: FLUTICASONE/VILANTEROL 200/25MCG 14 PUFFS/INHALER INH SCH (08:36)
[2022-05-29] MEDS: LANTUS PER UNIT CHARGE SQ SCH (08:49)
[2022-05-29] MEDS ORDERED: FERROUS SULFATE 325 MG TAB PO SCH (09:00)
[2022-05-29] MEDS ORDERED: FLUTICASONE/SALMETEROL 250/50 (ADVAIR) 14 PUFF/1 INHALER INH SCH (09:00)
[2022-05-29] MEDS: guaiFENesin 600 MG TABCR PO SCH ×2 (09:16→21:10)
[2022-05-29 09:39] LABS: Pregnancy Test, Urine Negative (Negative)
--- NOTE | 2022-05-29 09:40 | CT Scan Report ---
CT chest diagnostic wo con CT DOSE: 1005.40 mGy.cm HISTORY: Dyspnea. r/o pneumonia TECHNIQUE: Multiaxial CT images of the chest were performed without contrast. A dose lowering techni que was utilized adhering to the principles of ALARA. COMPARISON: Chest 05/28/2022. FINDINGS: The central airways are patent. No pneumothorax. No focal lung consolidations. There is a s mall focus of tree-in-bud nodular opacities within the right upper lobe on image 58. A few small nodu lar foci within the left lower lobe posteriorly favor impacted distal bronchi. Otherwise, the central airways are patent. There is a 1.4 cm left thyroid nodule again noted. Hepatic steatosis. Cholecyste ctomy. The adrenal glands are unremarkable. A 2.8 cm hypodense lesion within the left kidney. This fa vors a cyst. There is a punctate stone within the left kidney. No mediastinal or hilar lymphadenopath y. The heart is normal in size. Normal esophagus. Normal caliber thoracic aorta with mild calcified p laque. No pleural or pericardial effusions. IMPRESSION: 1. A small focus of tree-in-bud nodular opacities within the right upper lobe. A few small nodular fo ci within the left lower lobe posteriorly which favor impacted distal bronchi. Therefore, these findi ngs suggest a mild bronchiolitis. 2. No focal lung consolidations. 3. Hepatic steatosis. ACT 112: Negative or not required by law. Electronically signed by: Erwin Blanco M.D. 05/29/2022 9:38 AM
--- NOTE | 2022-05-29 11:18 | Electrocardiogram Report ---
Test Reason : Blood Pressure : / mmHG Vent. Rate : 085 BPM Atrial Rate : 085 BPM P-R Int : 158 ms QRS Dur : 088 ms QT Int : 380 ms P-R-T Axes : 040 048 035 degrees QTc Int : 452 ms Normal sinus rhythm Normal ECG No previous ECGs available Confirmed by Solo Durand ([id number]) on 05/29/2022 11:17:57 AM Referred By: REFERRED SELF Confirmed By:Solo Durand
[2022-05-29] MEDS ORDERED: RIZATRIPTAN BENZOATE 10 MG TAB PO STA (14:01)
[2022-05-29] MEDS: ACETAMINOPHEN 500 MG TAB PO SCH ×2 (14:46→21:10)
--- NOTE | 2022-05-29 14:53 | Hospitalist Progress Note ---
Date of Service May 29, 2022 Assessment & Plan (1) Acute hypoxemic respiratory failure: Plan: Possible asthma exacerbation COVID [address] - [address] chest: 1. A small focus of tree-in-bud nodular opacities within the right upper lobe. A few small nodular foci within the left lower lobe posteriorly which favor impacted distal bronchi. Therefore, these findings suggest a mild bronchiolitis. 2. No focal lung consolidations. 3. Hepatic steatosis. - improving - now on room air - continue Decadron - Nebs Augmentin BID Mucinex, Flutter valve - out of window for Remdesivir Cutter Head Sharpener consulted - will need outpatient Sleep Study Migraine/Cluster Headache - Rizatriptan PO one dose - PRN Toradol HCV status post treatment DM2 diet-controlled, well-controlled as of recent hemoglobin A1c of 6.8 last February 2022 anxiety/PTSD/mood disorder, at baseline ongoing tobacco abuse DVT prophylaxis per Lovenox subcu Full code Disposition d/c home when medically stable Admission and Anticipated Discharge Date Admission Date: May 28, 2022 Subjective ff up for resp failure, covid infection, etc seen resting in bed, comfortable watching TV on room air states she feels improved compared to yesterday but still has some chest tightness, productive cough no dyspnea reports L sided headache- similar to her usual migraine no other symptoms Review of Systems Review of Systems: all noted and negative except for above Physical Exam Physical Exam: General- oriented x 3, not in distress, speaks in sentences with no effort or accessory muscle use Eyes- anicteric Neck- no JVD Lungs- mild rhonchi at the bases no wheezing Heart- normal rate, regular rhythm; no murmurs Abdomen- normal bowel sounds, nondistended, soft, no tenderness Extremities- no pretibial edema, no calf tenderness Neuro- alert, oriented x 3; no gross focal neurologic deficits Skin- warm & dry Results & Data Results & Data ([facility]) Vital Signs (Past 12 Hours) Vital Signs Temp Pulse Resp BP Pulse Ox O2 Del Method 05/29/22 12:38 88 18 95 Room Air 05/29/22 11:43 37 C 91 H 18 129/86 92 Room Air 05/29/22 08:00 Room Air 05/29/22 08:00 37.1 C 109 H 20 138/93 96 Room Air 05/29/22 07:36 109 H 16 93 Room Air 05/29/22 03:46 37.0 C 102 H 18 116/70 94 Room Air all noted and reviewed including below
--- NOTE | 2022-05-29 15:02 | Pharmacy Report ---
Pharmacy Glycemic Short Note 2 - Date of Service May 29, 2022 - Glycemic Short BSG Results (Last 24 hours): 05/28/22 05/29/22 05/29/22 19:54 00:49 05:48 Glucose 90 200 H POC Glucose 209 H 05/29/22 05/29/22 07:59 11:42 Glucose POC Glucose 160 H 165 H OUTPATIENT ANTIDIABETIC REGIMEN: * Metformin ER 500 mg PO QAM * Trulicity 0.75 mg weekly ASSESSMENT: * 41 y/o F admitted with covid and respiratory failure. Patient has history of Type 2 diabetes managed at home on above two meds. * She was started on Dexamethasone 10 mg IV x1 yesterday which caused hyperglycemia late in the day. * Dex IV 6 mg daily continued this morning. Lantus 5 units was given overnight. Additionally Lantus 0.15 units/kg QAM ordered this morning. * Novolog parameters based on wt and stress of 3. PLAN FOR INPATIENT GLYCEMIC CONTROL: * Hold outpatient oral diabetes medications * Basal insulin * Lantus 15 units SQ QAM * Bolus insulin * NovoLog per scale ACHS or Q6hrs while NPO * Goal Range: Low 110 mg/dL - High 140 mg/dL * Correction Factor: 15 mg/dL/unit * Nutritional / Prandial insulin per carb ratio of 1 unit per 5 grams CHO consumed
[2022-05-29] MEDS: KETOROLAC 30 MG/ML VIAL IV PRN ×2 (15:57→22:29)
[2022-05-29] MEDS ORDERED: MONTELUKAST SODIUM 10 MG TABLET PO SCH (21:00)
[2022-05-30] MEDS: IPRATROPIUM BROMIDE NEB SOLN 0.02% 2.5 ML VIAL INH SCH ×3 (00:19→12:42)
[2022-05-30] MEDS: LEVALBUTEROL 1.25MG/0.5ML NEB INH SCH ×3 (00:19→12:42)
[2022-05-30] MEDS: ACETAMINOPHEN 500 MG TAB PO SCH ×2 (06:35→13:00)
[2022-05-30 06:46] LABS: Estimated Average Glucose 131 mg/dl; Hemoglobin A1C 6.2 % (4.5-5.6)
[2022-05-30] MEDS: SERTRALINE HCL 50 MG TABLET PO SCH (08:20)
[2022-05-30] MEDS: FERROUS SULFATE 325 MG TAB PO SCH (08:20)
[2022-05-30] MEDS: PANTOprazole 40 MG TAB PO SCH (08:20)
[2022-05-30] MEDS: CETIRIZINE HCL 10 MG TABLET PO SCH (08:20)
[2022-05-30] MEDS: guaiFENesin 600 MG TABCR PO SCH (08:20)
[2022-05-30] MEDS: GABAPENTIN 400 MG CAP PO SCH ×2 (08:20→13:00)
[2022-05-30] MEDS: FAMOTIDINE 20 MG TAB PO PRN (08:20)
[2022-05-30] MEDS: METOPROLOL SUCC 25MG EXT REL TAB PO SCH (08:20)
[2022-05-30] MEDS: NICOTINE 7 MG/24 HR TDSY TD SCH (08:20)
[2022-05-30] MEDS: oxyCODONE HCL IR 5 MG TAB (IMMEDIATE RELEASE) PO PRN ×2 (08:20→12:59)
[2022-05-30] MEDS: AMOXICILLIN/CLAVULANATE 875 MG TAB PO SCH ×2 (08:20→17:24)
[2022-05-30] MEDS: clonazePAM 0.5 MG TAB PO PRN (08:21)
[2022-05-30] MEDS: FLUTICASONE PROPIONATE NA SPR 16 GM BTL SCH (08:21)
[2022-05-30] MEDS: FLUTICASONE/VILANTEROL 200/25MCG 14 PUFFS/INHALER INH SCH (08:21)
[2022-05-30] MEDS: AZELASTINE HCL 0.1% NASAL 200 SPRAYS/27,400 MCG BTL SCH (08:21)
[2022-05-30] MEDS: dexAMETHasone 6 MG in SYRINGE 0 ML IV SCH (08:22)
[2022-05-30] MEDS: ENOXAPARIN INJ 40 MG/0.4 ML SYR SQ SCH (08:22)
[2022-05-30] MEDS: INSULIN ASPART PER UNIT SC SCH ×3 (08:50→17:23)
[2022-05-30] MEDS: LANTUS PER UNIT CHARGE SQ SCH (08:51)
--- NOTE | 2022-05-30 15:50 | Pulmonology Progress Note ---
Date of Service May 30, 2022 Assessment & Plan (1) Acute asthma exacerbation: Plan: Patient has evidence of focal bronchiolitis in the right upper lobe on CT chest possibly related to COVID-19. She is being treated for an asthma exacerbation. I would not recommend more than 5 days of steroids and discharging her home on an ICS/LABA inhaler. Mild peripheral eosinophilia noted on CBC during admission to [facility] [place] [facility] [place] consistent with Th2 mediated asthma. Continue IS and flutter valve. She has an appointment established with [facility] pulmonology which I recommended she follow-up with. I would recommend avoiding known and potential allergens. Outpatient PFTs, IgE and NIOX testing should be considered as an outpatient. She is stable for discharge home today. Pulmonary to sign off. Thank you for the consult. Admission and Anticipated Discharge Date Admission Date: May 28, 2022 Subjective Patient denies any shortness of breath at this time. Cough is minimal. She notes that she has been sleeping well today. She is currently on room air. Review of Systems Review of Systems: All systems reviewed & are unremarkable except as noted in HPI & below Physical Exam Physical Exam: Constitutional: No acute distress HEENT: EOMI, PERRLA Respiratory system: No wheeze, rhonchi, or crackles CVS: S1-S2 positive, no murmurs or gallops Abdomen: Soft, nontender, nondistended, obese Extremities: +2 pulses bilaterally radialis/ dorsalis pedis, no cyanosis, no edema Neuro: Awake alert oriented x3 Psych: Normal mood and affect G/U: No Perry Skin: no rashes, warm and dry Lymphatic: no cervical or axillary lymphadenopathy Results & Data Results & Data ([facility]) Vital Signs (Past 12 Hours) Vital Signs Temp Pulse Pulse Resp BP Pulse Ox O2 Del Method 05/30/22 12:42 72 16 95 Room Air 05/30/22 11:55 37 C 72 18 133/81 94 Room Air 05/30/22 08:00 73 05/30/22 08:00 Room Air 05/30/22 07:50 37 C 90 18 106/60 93 Room Air 05/30/22 07:09 77 16 96 Room Air PG Care Time/CCT Total # of Minutes Spent Total Time Spent with Patient: Total time spent is greater than 50% in coordination of care (as documented) at patient's floor/unit and/or counseling patient: Coding Level of Care Code 49550 Subseq Hosp Care Lvl 2 Diagnoses Acute asthma exacerbation J45.901
--- NOTE | 2022-05-30 17:40 | Hospitalist Progress Note ---
Date of Service May 30, 2022 delayed entry date of service as above Assessment & Plan (1) Acute hypoxemic respiratory failure: Plan: Asthma exacerbation COVID [address] chest: 1. A small focus of tree-in-bud nodular opacities within the right upper lobe. A few small nodular foci within the left lower lobe posteriorly which favor impacted distal bronchi. Therefore, these findings suggest a mild bronchiolitis. 2. No focal lung consolidations. 3. Hepatic steatosis. - out of window for Remdesivir - clinically improved weaned off oxygen - placed on Decadron--> transition to Prednisone - Nebs also given Augmentin BID Mucinex Flutter valve Wooden Barrel Mechanic consulted will need outpatient Sleep Study Migraine/Cluster Headache - Rizatriptan PO one dose given resolved - PRN Toradol HCV status post treatment DM2 diet-controlled, well-controlled as of recent hemoglobin A1c of 6.8 last February 2022 Anxiety/PTSD/mood disorder Ongoing tobacco abuse DVT prophylaxis per Lovenox subcu Full code Disposition d/c home when medically stable Plan d/c home plan of care discussed with patient in detail and at length all questions answered she is understanding, agreeable, comfortable with the plan of care Admission and Anticipated Discharge Date Admission Date: May 28, 2022 Subjective ff up for COVID infection, Asthma exacerbation, etc seen resting in bed, comfortable on room air states she feels much better overall minimal intermittent cough no dyspnea, fever/chills appetite is good headache resolved no other symptoms states she is ready for discharge Review of Systems Review of Systems: all noted and negative except for above Physical Exam Physical Exam: General- oriented x 3, not in distress, speaks in sentences with no effort or accessory muscle use Eyes- anicteric Neck- no JVD Lungs- clear breath sounds bilaterally, no rales/wheezes Heart- normal rate, regular rhythm; no murmurs Abdomen- normal bowel sounds, nondistended, soft, nontender Extremities- no pretibial edema, no calf tenderness Neuro- alert, oriented x 3; no gross focal neurologic deficits Skin- warm & dry Results & Data Results & Data ([facility]) Vital Signs (Past 12 Hours) Vital Signs Temp Pulse Pulse Resp BP Pulse Ox O2 Del Method 05/30/22 17:39 37.2 C 72 18 128/76 94 05/30/22 16:58 37.2 C 72 18 128/76 94 Room Air 05/30/22 12:42 72 16 95 Room Air 05/30/22 11:55 37 C 72 18 133/81 94 Room Air 05/30/22 08:00 73 05/30/22 08:00 Room Air 05/30/22 07:50 37 C 90 18 106/60 93 Room Air 05/30/22 07:09 77 16 96 Room Air all noted and reviewed including below
--- NOTE | 2022-06-03 15:49 | Discharge Summary ---
Discharge Summary Date of Service June 03, 2022 delayed entry date of service 05/30/22 Notes For Next Care Provider Pulmonology recommendations: Outpatient PFTs, IgE and NIOX testing should be considered as an outpatient. Medication Changes From Visit Prednisone taper Augment course Singulair Mucinex Xopenex/Atrovent PRN Admission HPI Per Admitting Provider History obtained from patient, family, and records. Medical history significant for bronchial asthma, HCV status post treatment, DM2 diet-controlled, anxiety/PTSD/mood disorder, chronic back pain, ongoing tobacco abuse. 3 weeks history of flulike symptoms associated with loss of taste/smell followed by sinus congestion with note of yellow drainage. Worsening cough productive of dry sputum with pleuritic chest pain and shortness of breath. Diarrhea symptoms without abdominal pain complaints. Possible COVID-19 contacts at home. Patient has not received COVID-19 vaccination. Patient thinks her asthma is acting up. Patient seen at urgent care center today. Prednisone and Augmentin course prescribed for asthma exacerbation and sinusitis. Fluticasone salmeterol inhaler prescribed to replace patient's Flovent. Outpatient pulmonary and ENT consultations recommended. Patient sent to [facility] for testing. O2 sats noted to be 80s at the ER. Decadron and neb treatment administered at the ER. 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 Admission Exam Per Admitting Provider GENERAL: Slightly uncomfortable, morbidly obese, looks older than stated age, no respiratory distress SKIN: Normal color, warm HEENT: Bespectacled, [place] palpebral conjunctivae, no ptosis, dry buccal mucosa NECK : Supple, short neck, no tenderness CHEST : Decreased breath sounds, no tenderness HEART : Tachycardic, no obvious murmurs ABDOMEN: Some distention, nontender EXTREMITIES : Minimal LE swelling, no LE tenderness, no other conspicuous deformities noted NEUROLOGIC : Coherent, no facial asymmetry, no other gross focality Principal Dx & Hospital Course #1 = Principal Diagnosis (1) Acute hypoxemic respiratory failure: Asthma exacerbation COVID 19 infection - CT chest: 1. A small focus of tree-in-bud nodular opacities within the right upper lobe. A few small nodular foci within the left lower lobe posteriorly which favor impacted distal bronchi. Therefore, these findings suggest a mild bronchiolitis. 2. No focal lung consolidations. 3. Hepatic steatosis. - out of window for Remdesivir as patient's symptoms commenced 3 months earlier - given Decadron, Nebs QID, Augmentin Flutter valve - clinically improved weaned off oxygen - continue Prednisone taper, Augment, Advair prescribed by Urgent Care prior to admission Singulair daily as prescribed by Pulmonology [employer] consulted Outpatient PFTs, IgE and NIOX testing should be considered as an outpatient. Migraine/Cluster Headache - Rizatriptan PO one dose given resolved - PRN Toradol HCV status post treatment DM2 diet-controlled, well-controlled as of recent hemoglobin A1c of 6.8 last February 2022 Anxiety/PTSD/mood disorder Ongoing tobacco abuse Plan d/c home ff up with PCP in 1 week plan of care discussed with patient in detail and at length all questions answered she is understanding, agreeable, comfortable with the plan of care Discharge Exam General- oriented x 3, not in distress, speaks in sentences with no effort or accessory muscle use Eyes- anicteric Neck- no JVD Lungs- clear breath sounds bilaterally, no rales/wheezes Heart- normal rate, regular rhythm; no murmurs Abdomen- normal bowel sounds, nondistended, soft, nontender Extremities- no pretibial edema, no calf tenderness Neuro- alert, oriented x 3; no gross focal neurologic deficits Skin- warm & dry Updated Medication List Medication Instructions Recorded Confirmed Type Ferrous Sulfate Dried Pill 1 tab PO DAILY 05/28/22 05/28/22 History Vitamin C Gummy 240 mg PO DAILY 05/28/22 05/28/22 History acetaminophen 325 mg tablet 650 mg PO Q6 PRN Pain 05/28/22 05/28/22 History (Tylenol) albuterol sulfate 90 mcg/actuation 2 puff inhalation Q4 PRN .cough, 05/28/22 05/28/22 History aerosol inhaler sob, wheezing amoxicillin 875 mg-potassium 1 tab PO BID 05/28/22 05/28/22 History clavulanate 125 mg tablet azelastine 137 mcg (0.1 %) nasal 1 spray intranasal DIRECTED 05/28/22 05/28/22 History spray aerosol budesonide 0.5 mg/2 mL suspension 0.5 mg irrigation DIRECTED 05/28/22 05/28/22 History for nebulization cetirizine 10 mg tablet (Zyrtec) 10 mg PO DAILY 05/28/22 05/28/22 History clonazepam 0.5 mg tablet 0.5 mg PO DAILY PRN Anxiety 05/28/22 05/28/22 History clonazepam 0.5 mg tablet 1 mg PO HS 05/28/22 05/28/22 History colestipol 1 gram tablet 1 g PO AMHS 05/28/22 05/28/22 History diclofenac sodium 50 mg 50 mg PO BID PRN Pain 05/28/22 05/28/22 History tablet,delayed release dulaglutide 0.75 mg/0.5 mL 0.75 mg subcut WE 05/28/22 05/28/22 History subcutaneous pen injector (Trulicity) famotidine 20 mg tablet 20 mg PO BID PRN Acid Reflux 05/28/22 05/28/22 History fluticasone 250 mcg-salmeterol 50 1 inh inhalation BID 05/28/22 05/28/22 History mcg/dose blistr powdr for inhalation (Advair Diskus) fluticasone propionate 50 2 spray intranasal BID 05/28/22 05/28/22 History mcg/actuation nasal spray,suspension (Flonase Allergy Relief) gabapentin 400 mg capsule 400 mg PO TID 05/28/22 05/28/22 History ketoconazole 2 % shampoo 1 applic topical 2XWK 05/28/22 05/28/22 History methocarbamol 500 mg tablet 750 mg PO HS PRN .. 05/28/22 05/28/22 History metoprolol succinate 50 mg 75 mg PO QAM 05/28/22 05/28/22 History tablet,extended release 24 hr naproxen sodium 220 mg tablet 220 mg PO BIDM PRN Pain 05/28/22 05/28/22 History nicotine 14 mg/24 hr daily 1 patch topical DIRECTED 05/28/22 05/28/22 History transdermal patch omeprazole 40 mg capsule,delayed 40 mg PO BID 05/28/22 05/28/22 History release ondansetron 4 mg disintegrating 4 mg translingual Q8H PRN Nausea 05/28/22 05/28/22 History tablet prednisone 10 mg tablet 10 mg PO .TAPER UD 05/28/22 05/28/22 History rizatriptan 10 mg disintegrating 0 mg PO .COMPLEX 05/28/22 05/28/22 History tablet sertraline 100 mg tablet 150 mg PO QAM 05/28/22 05/28/22 History trazodone 150 mg tablet 150 mg PO HS 05/28/22 05/28/22 History guaifenesin 600 mg tablet, 1,200 mg PO Q12 5 days #20 tabs 05/30/22 Rx extended release 12 hr (Mucinex) ipratropium bromide 0.02 % 0.5 mg (2.5 mL) inhalation Q4H PRN 05/30/22 Rx solution for inhalation shortness of breath/wheezing #62.5 mL levalbuterol HCl 1.25 mg/0.5 mL 1.25 mg (0.5 mL) inhalation Q4H 05/30/22 Rx solution for nebulization PRN shortness of breath/wheezing #30 ea montelukast 10 mg tablet 10 mg PO HS 30 days #30 tabs 05/30/22 Rx (Singulair) Hospital Stay Data Consultations 05/28/22 21:23 ED Decision to Admit Stat 05/29/22 07:50 Consult Pulmonology Routine Diagnostic Imagining Performed 05/28/22 22:14 CT sinus w con Stat COMPARISON STUDY: No priors. TECHNIQUE: High-resolution CT scan of the paranasal sinuses is performed following the IV administration of 87 cc of Optiray 350. Images are reviewed in the axial, sagittal, and coronal planes. IV contrast was administered without complication. A dose lowering technique was utilized adhering to the principles of ALARA. CT DOSE: 626.76 mGy.cm FINDINGS: Maxillary antra: Clear bilaterally. Anterior ethmoid sinuses: Clear. Posterior ethmoid sinuses: Trace mucosal thickening is seen in the right. Clinical on the left. Sphenoid sinuses: Trace mucosal thickening is seen on the left. Clear the right. Frontal sinuses: Clear. Ostiomeatal complexes: Patent bilaterally. Frontoethmoidal and sphenoethmoidal recesses: Patent bilaterally. Carotid arteries: The carotid arteries are covered and without septal attachments. Ethmoid roofs: The ethmoid roofs are symmetric. Nasal turbinates: Normal in appearance. Nasal septum: There is mild leftward deviation of the bony nasal septum. Optic nerves: Covered. Orbits: The bony orbits are intact. Orbital contents are normal in appearance. Calvarium: The imaged calvarium is normal in appearance Mastoid air cells: Well pneumatized. Brain parenchyma: Partially visualized brain parenchyma is within normal limits. IMPRESSION: No significant paranasal sinus disease is identified. ACT 112: Negative or not required by law. Electronically signed by: Genaro Quiros M.D. 05/28/2022 11:57 PM 05/29/22 07:44 CT chest diagnostic wo con Urgent HISTORY: Dyspnea. r/o pneumonia TECHNIQUE: Multiaxial CT images of the chest were performed without contrast. A dose lowering technique was utilized adhering to the principles of ALARA. COMPARISON: Chest 05/28/2022. FINDINGS: The central airways are patent. No pneumothorax. No focal lung consolidations. There is a small focus of tree-in-bud nodular opacities within the right upper lobe on image 58. A few small nodular foci within the left lower lobe posteriorly favor impacted distal bronchi. Otherwise, the central airways are patent. There is a 1.4 cm left thyroid nodule again noted. Hepatic steatosis. Cholecystectomy. The adrenal glands are unremarkable. A 2.8 cm hypodense lesion within the left kidney. This favors a cyst. There is a punctate stone within the left kidney. No mediastinal or hilar lymphadenopathy. The heart is normal in size. Normal esophagus. Normal caliber thoracic aorta with mild calcified plaque. No pleural or pericardial effusions. IMPRESSION: 1. A small focus of tree-in-bud nodular opacities within the right upper lobe. A few small nodular foci within the left lower lobe posteriorly which favor impacted distal bronchi. Therefore, these findings suggest a mild bronchiolitis. 2. No focal lung consolidations. 3. Hepatic steatosis. ACT 112: Negative or not required by law. Electronically signed by: Erwin Blanco M.D. 05/29/2022 9:38 AM Pending Results Patient Have Any Pending Studies at Discharge: No Discharge Instructions Given to Patient (Per Discharging Provider) PLEASE REFER TO YOUR NEW MEDICATION LIST AND FOLLOW INSTRUCTIONS CAREFULLY. YOUR NEW MEDICATIONS INCLUDE: Singulair-for asthma control Mucinex-for cough Xopenex/Atrovent-nebulizer treatment as needed for shortness of breath or wheezing Continue Advair, prednisone taper, Augmentin as previously prescribed. Continue using incentive spirometer, flutter valve at home. Ambulate frequently to prevent blood clots in her legs. PLEASE CALL YOUR PRIMARY CARE PHYSICIAN OR RETURN TO THE ER IF WITH WORSENING OF SYMPTOMS, INCLUDING Shortness of breath, cough, fevers or chills, sputum production, chest pain, leg pain, leg swelling, etc. FOLLOW UP WITH PRIMARY CARE PHYSICIAN OUTLINED ABOVE. FOLLOW-UP WITH [facility] SCHEDULED. Total Time Total Time Spent Total Time Spent (In Minutes): > 30 minutes
== END 2022-05-30 18:05 | disposition home or self-care (01) | DRG 177 ==
LOC: ED 19:16 → 2E 22:17